=== PATIENT | female | born 1995 | race Caucasian/White ===

== ENCOUNTER 2017-11-15 22:16 | Emergency (ER) | payer OTHER, MEDICAID ==
[2017-11-16 00:47] LABS: ADD MAN DIFF? NO
[2017-11-16 00:48] LABS: WHITE BLOOD COUNT 11.9 10^3/ul (4.8-10.8)
[2017-11-16 00:48] LABS: BASOPHILS % 0.3 % (0.0-2.0); EOSINOPHILS # 0.2 10^3/ul (0.0-0.5); EOSINOPHILS % 1.9 % (0.0-7.0); HEMATOCRIT 37.6 % (37.0-47.0); HEMOGLOBIN 12.8 g/dl (12.0-16.0); LYMPHOCYTES # 3.5 10^3/ul (0.8-2.9); LYMPHOCYTES % 29.5 % (15.0-51.0); MEAN CORPUSCULAR HEMOGLOBIN 28.8 pg (29.0-33.0); MEAN CORPUSCULAR VOLUME 84.7 fl (82.0-101.0); MEAN PLATELET VOLUME 10.4 fl (7.4-10.4); MONOCYTE # 0.8 10^3/ul (0.3-0.9); MONOCYTES % 6.7 % (0.0-11.0); NEUTROPHIL # 7.3 10^3/ul (1.6-7.5); NEUTROPHILS % 61.3 % (39.0-77.0); PLATELET COUNT 244 10^3/UL (140-415); RED BLOOD COUNT 4.44 10^6/ul (4.20-5.40)
[2017-11-16 01:06] LABS: ADD UMIC NO; UR ASCORBIC ACID NEGATIVE (NEGATIVE); UR BILIRUBIN (Dip) NEGATIVE (NEGATIVE); UR BLOOD (Dip) NEGATIVE (NEGATIVE); UR CLARITY CLEAR (CLEAR); UR COLOR STRAW (YELLOW); UR GLUCOSE (Dip) NEGATIVE (NEGATIVE); UR KETONES (Dip) NEGATIVE (NEGATIVE); UR LEUKOCYTE ESTERASE (Dip) NEGATIVE Leu/ul (NEGATIVE); UR NITRITE (Dip) NEGATIVE (NEGATIVE); UR SPECIFIC GRAVITY (Dip) 1.009 (1.003-1.030); UR TOTAL PROTEIN (Dip) NEGATIVE (NEGATIVE); UR UROBILINOGEN (Dip) NEGATIVE (NEGATIVE)
[2017-11-16 01:14] LABS: ALANINE AMINOTRANSFERASE 28 IU/L (13-69); ALBUMIN/GLOBULIN RATIO 1.14; ALKALINE PHOSPHATASE 79 IU/L (42-121); ANION GAP 14 (8-16); ASPARTATE AMINO TRANSFERASE 25 IU/L (15-46); BILIRUBIN,INDIRECT 0.3 mg/dl (0-1.1); BILIRUBIN,TOTAL 0.3 mg/dl (0.2-1.3); BLOOD UREA NITROGEN 8 mg/dl (7-20); CALCIUM 9.7 mg/dl (8.4-10.2); CARBON DIOXIDE 27 mmol/L (21-31); CHLORIDE 101 mmol/L (97-110); CREATININE 0.55 mg/dl (0.44-1.00); GLUCOSE 86 mg/dl (70-220); POTASSIUM 4.2 mmol/L (3.5-5.1); SODIUM 138 mmol/L (135-144); TOTAL PROTEIN 7.5 g/dl (6.1-8.1)
== END 2017-11-16 02:02 | disposition home or self-care (01) ==
LOC: FTE 11-16 02:02
DX: O98.511 Other viral diseases complicating pregnancy, first trimester (principal); B34.9 Viral infection, unspecified; R51 Headache; Z3A.12 12 weeks gestation of pregnancy
CPT/HCPCS: 36415; 80053; 81003; 85025; 99283

== ENCOUNTER 2018-05-02 12:16 | Outpatient (CLI) | payer OTHER | END 2018-05-02 17:11 | disposition home or self-care (01) | LOC: OBT 12:16 → L-D 12:16 → OBT 17:11 | DX: O36.8130 Decreased fetal movements, third trimester, not applicable or unspecified (principal); Z3A.37 37 weeks gestation of pregnancy | CPT/HCPCS: 76815; 76818 ==

== ENCOUNTER 2018-05-18 09:34 | Inpatient (IN) | payer OTHER ==
[2018-05-18] MEDS ORDERED: OXYTOCIN 30 UNITS/LR 500 ML IV ×2 (11:30)
[2018-05-18] MEDS ORDERED: BUTORPHANOL 1 MG INJ IV (11:30)
[2018-05-18] MEDS ORDERED: LIDOCAINE 1% (MPF) 30 ML INJ INJ (11:30)
[2018-05-18] MEDS ORDERED: MISOPROSTOL 200 MCG TAB PR (11:30)
[2018-05-18] MEDS ORDERED: METHYLERGONOVINE 0.2 MG INJ IM (11:30)
[2018-05-18] MEDS ORDERED: CARBOPROST 250 MCG INJ IM (11:30)
[2018-05-18 12:35] LABS: ADD MAN DIFF? NO
[2018-05-18 12:38] LABS: BASOPHILS % 0.3 % (0.0-2.0); EOSINOPHILS % 0.3 % (0.0-7.0); HEMATOCRIT 38.3 % (37.0-47.0); HEMOGLOBIN 13.1 g/dl (12.0-16.0); LYMPHOCYTES # 2.4 10^3/ul (0.8-2.9); LYMPHOCYTES % 19.4 % (15.0-51.0); MEAN CORPUSCULAR HEMOGLOBIN 28.7 pg (29.0-33.0); MEAN CORPUSCULAR HGB CONC 34.2 g/dl (32.0-37.0); MEAN CORPUSCULAR VOLUME 83.8 fl (82.0-101.0); MEAN PLATELET VOLUME 11.3 fl (7.4-10.4); MONOCYTE # 0.7 10^3/ul (0.3-0.9); MONOCYTES % 5.8 % (0.0-11.0); NEUTROPHIL # 9.2 10^3/ul (1.6-7.5); NEUTROPHILS % 73.4 % (39.0-77.0); PLATELET COUNT 203 10^3/UL (140-415); RED BLOOD COUNT 4.57 10^6/ul (4.20-5.40); RED CELL DISTRIBUTION WIDTH 12.9 % (11.5-14.5)
[2018-05-18 12:38] LABS: WHITE BLOOD COUNT 12.5 10^3/ul (4.8-10.8)
[2018-05-18 12:59] LABS: PROTIME 12.3 Sec (11.9-14.9)
[2018-05-18] MEDS: LACTATED RINGER'S 1,000 ML IV ×2 (13:31→21:53)
[2018-05-18 15:04] LABS: RAPID PLASMA REAGIN NONREACTIVE (NR)
[2018-05-18] MEDS: AMPICILLIN 2 GM/NS (PMX) 100 ML IV (15:16)
[2018-05-18] MEDS: AMPICILLIN 1 GM/NS (PMX) 50 ML IV ×2 (19:05→23:20)
[2018-05-18] MEDS: BUTORPHANOL 2 MG INJ IV (23:21)
[2018-05-19] MEDS: AMPICILLIN 1 GM/NS (PMX) 50 ML IV ×4 (03:30→13:22)
[2018-05-19] MEDS: BUTORPHANOL 2 MG INJ IV ×3 (04:54→11:34)
[2018-05-19] MEDS: LACTATED RINGER'S 1,000 ML IV ×4 (04:55→14:37)
[2018-05-19] MEDS: OXYTOCIN 30 UNITS/LR 500 ML IV ×3 (06:47→20:16)
[2018-05-19] MEDS: MINERAL OIL LIGHT 10 ML VIAL TOP (10:30)
[2018-05-19] MEDS ORDERED: IBUPROFEN 600 MG TAB PO (10:30)
[2018-05-19] MEDS ORDERED: FENTAnyl 2MCG/ML-ROPIV 0.2% 100 ML (12:17)
[2018-05-19 12:29] LABS: HEPATITIS B SURFACE ANTIGEN NEGATIVE (NEGATIVE)
[2018-05-19] MEDS ORDERED: FENTAnyl 2MCG/ML-ROPIV 0.2% 100 ML BAG EPI (13:00)
[2018-05-19] MEDS ORDERED: NALOXONE (0.4 MG/ML) INJ IV (13:00)
[2018-05-19 13:08] LABS: ADD UMIC YES; UR ASCORBIC ACID NEGATIVE (NEGATIVE); UR BACTERIA FEW /HPF (NONE SEEN); UR BILIRUBIN (Dip) NEGATIVE (NEGATIVE); UR BLOOD (Dip) 1+ mg/dL (NEGATIVE); UR CLARITY CLEAR (CLEAR); UR COLOR YELLOW (YELLOW); UR GLUCOSE (Dip) NEGATIVE (NEGATIVE); UR KETONES (Dip) 1+ mg/dL (NEGATIVE); UR LEUKOCYTE ESTERASE (Dip) NEGATIVE Leu/ul (NEGATIVE); UR NITRITE (Dip) NEGATIVE (NEGATIVE); UR RBC 3 /HPF (0-5); UR SPECIFIC GRAVITY (Dip) 1.011 (1.003-1.030); UR TOTAL PROTEIN (Dip) NEGATIVE (NEGATIVE); UR UROBILINOGEN (Dip) NEGATIVE (NEGATIVE); UR WBC 0 /HPF (0-5)
[2018-05-19 14:34] LABS: URIC ACID 6.2 mg/dl (3.1-7.9)
[2018-05-19 14:38] LABS: ALANINE AMINOTRANSFERASE 9 IU/L (13-69); ALBUMIN 3.3 g/dl (3.3-4.9); ALBUMIN/GLOBULIN RATIO 1.03; ALKALINE PHOSPHATASE 204 IU/L (42-121); ANION GAP 10 (5-13); ASPARTATE AMINO TRANSFERASE 17 IU/L (15-46); BILIRUBIN,INDIRECT 0.3 mg/dl (0-1.1); BILIRUBIN,TOTAL 0.3 mg/dl (0.2-1.3); BLOOD UREA NITROGEN 6 mg/dl (7-20); CALCIUM 9.3 mg/dl (8.4-10.2); CARBON DIOXIDE 22 mmol/L (21-31); CHLORIDE 108 mmol/L (97-110); CREATININE 0.63 mg/dl (0.44-1.00); Estimated GFR > 60 mL/min (>60); GLUCOSE 84 mg/dl (70-220); POTASSIUM 4.2 mmol/L (3.5-5.1); SODIUM 140 mmol/L (135-144); TOTAL PROTEIN 6.5 g/dl (6.1-8.1)
[2018-05-19] MEDS: LACTATED RINGER'S 1,000 ML IV* (18:06)
[2018-05-19] MEDS ORDERED: MISOPROSTOL 200 MCG TAB PR (18:30)
[2018-05-19] MEDS: IBUPROFEN 600 MG TAB PO ×2 (18:30→23:23)
[2018-05-19] MEDS ORDERED: CARBOPROST 250 MCG INJ IM (18:30)
[2018-05-19] MEDS ORDERED: ACETAMINOPHEN 325 MG TAB PO (18:30)
[2018-05-19] MEDS: SENNA/DOCUSATE NA (8.6MG/50MG) TAB PO (23:23)
[2018-05-19] MEDS: BENZOCAINE 20% 56 ML SPRAY TOP (23:24)
[2018-05-19] MEDS: DIBUCAINE 1% 30 GM OINT TOP (23:26)
[2018-05-19] MEDS: WITCH HAZEL/GLYCERIN PAD PR (23:27)
[2018-05-20] MEDS: LACTATED RINGER'S 1,000 ML IV* ×3 (02:06→18:06)
[2018-05-20] MEDS: HYDROCODONE/APAP (5/325) TAB PO ×2 (04:43→20:43)
[2018-05-20] MEDS: IBUPROFEN 600 MG TAB PO ×3 (06:15→17:11)
[2018-05-20 07:52] LABS: ADD MAN DIFF? NO
[2018-05-20 07:57] LABS: WHITE BLOOD COUNT 14.1 10^3/ul (4.8-10.8)
[2018-05-20 07:57] LABS: BASOPHILS % 0.2 % (0.0-2.0); EOSINOPHILS # 0.2 10^3/ul (0.0-0.5); EOSINOPHILS % 1.5 % (0.0-7.0); HEMATOCRIT 32.6 % (37.0-47.0); HEMOGLOBIN 10.9 g/dl (12.0-16.0); LYMPHOCYTES # 2.7 10^3/ul (0.8-2.9); LYMPHOCYTES % 19.4 % (15.0-51.0); MEAN CORPUSCULAR HEMOGLOBIN 28.3 pg (29.0-33.0); MEAN CORPUSCULAR HGB CONC 33.4 g/dl (32.0-37.0); MEAN CORPUSCULAR VOLUME 84.7 fl (82.0-101.0); MEAN PLATELET VOLUME 11.4 fl (7.4-10.4); MONOCYTES % 7.2 % (0.0-11.0); NEUTROPHILS % 71.1 % (39.0-77.0); PLATELET COUNT 161 10^3/UL (140-415); RED BLOOD COUNT 3.85 10^6/ul (4.20-5.40); RED CELL DISTRIBUTION WIDTH 13.2 % (11.5-14.5)
[2018-05-20] MEDS: SENNA/DOCUSATE NA (8.6MG/50MG) TAB PO ×2 (09:00→20:43)
[2018-05-21] MEDS: IBUPROFEN 600 MG TAB PO ×3 (01:00→13:07)
[2018-05-21] MEDS: HYDROCODONE/APAP (5/325) TAB PO (06:39)
[2018-05-21] MEDS ORDERED: SUMATRIPTAN 50 MG TAB PO ×2 (07:30→08:00)
[2018-05-21] MEDS ORDERED: ACET/BUTAL/CAFF TAB PO (08:00)
[2018-05-21] MEDS ORDERED: DIPHTH/TET/ACEL PERTUSS (ADULT) 0.5 ML VIAL IM* (09:00)
[2018-05-21] MEDS: SENNA/DOCUSATE NA (8.6MG/50MG) TAB PO (09:41)
== END 2018-05-21 14:10 | disposition home or self-care (01) | DRG 807 ==
LOC: OBT 09:34 → PP1 05-19 17:55 → L-D 09:35 → OBT 11:25 → L-D 11:25
PROVIDERS: Obstetrics & Gynecology
PROC: 10E0XZZ Delivery of Products of Conception, External Approach (ICD-10-PCS; principal; 2018-05-19)
PROC: 0KQM0ZZ Repair Perineum Muscle, Open Approach (ICD-10-PCS; 2018-05-19)
PROC: 3E0R3GC Introduction of Other Therapeutic Substance into Spinal Canal, Percutaneous Approach (ICD-10-PCS; 2018-05-21)
DX: O99.824 Streptococcus B carrier state complicating childbirth (principal); Z37.0 Single live birth; O70.1 Second degree perineal laceration during delivery; G97.1 Other reaction to spinal and lumbar puncture; Y84.4 Aspiration of fluid as the cause of abnormal reaction of the patient, or of later complication, without mention of misadventure at the time of the procedure; Y92.239 Unspecified place in hospital as the place of occurrence of the external cause; Z3A.37 37 weeks gestation of pregnancy; Z3A.39 39 weeks gestation of pregnancy
CPT/HCPCS: 62319; 76818; 80053; 81001; 84560; 85025; 85610; 85730; 86592; 86850; 86900; 86901; 87340; 99464